=== PATIENT | female | born 1950 | race Caucasian/White ===

== ENCOUNTER 2020-01-25 08:07 | Outpatient (CLI) | payer OTHER | END 2020-01-25 08:14 | disposition home or self-care (01) | LOC: SONOGRAMA 08:07 | PROVIDERS: ATTEND Internal Medicine Gastroenterology | DX: K80.80 Other cholelithiasis without obstruction (principal); K76.0 Fatty (change of) liver, not elsewhere classified; R10.32 Left lower quadrant pain ==

== ENCOUNTER 2020-09-03 09:43 | Outpatient (CLI) | payer OTHER | END 2020-09-03 09:46 | disposition home or self-care (01) | LOC: TOM 09:43 | PROVIDERS: ATTEND Internal Medicine Gastroenterology | DX: R10.31 Right lower quadrant pain (principal); R10.9 Unspecified abdominal pain; R05 Cough | CPT/HCPCS: 74177; 71046; Q9965 ==

== ENCOUNTER 2022-07-07 07:21 | Outpatient (CLI) | payer OTHER | END 2022-07-07 07:28 | disposition home or self-care (01) | LOC: TOM 07:21 | PROVIDERS: ATTEND Internal Medicine Gastroenterology | DX: R10.32 Left lower quadrant pain (principal); R10.33 Periumbilical pain | CPT/HCPCS: 74177; Q9965 ==

== ENCOUNTER 2022-10-08 06:12 | Day surgery (SDC) | payer OTHER ==
[~2022-10-08] VITALS: Ht 162.6 cm; Wt 83.9 kg
[~2022-10-08 06:12] MED LIST: IRBESARTAN300 MG PO; TOPROL XL50 M1 PO; ZETIA10 MG PO
== END 2022-10-08 20:50 | disposition home or self-care (01) ==
LOC: CIR.AMB 06:12
PROVIDERS: ATTEND Surgery
DX: C50.412 Malignant neoplasm of upper-outer quadrant of left female breast (principal); N60.92 Unspecified benign mammary dysplasia of left breast; N62 Hypertrophy of breast; N64.81 Ptosis of breast; R59.0 Localized enlarged lymph nodes; Z20.822 Contact with and (suspected) exposure to COVID-19
CPT/HCPCS: 19301; 38525; 38792; 19318; 19281; A9541; L8699

== ENCOUNTER 2023-01-29 08:12 | Outpatient (CLI) | payer OTHER | END 2023-01-29 08:24 | disposition home or self-care (01) | LOC: RAD 08:12 | PROVIDERS: ATTEND Specialist | DX: R05.3 Chronic cough (principal) ==

== ENCOUNTER → 2024-02-09 12:48 | Outpatient (CLI) | payer OTHER | END | disposition home or self-care (01) | LOC: NUCLEAR 12:48 | PROVIDERS: ATTEND Internal Medicine Rheumatology | DX: M81.0 Age-related osteoporosis without current pathological fracture (principal) ==